=== PATIENT | female | born 1960 | race Two or more races ===

== ENCOUNTER 2020-07-24 16:24 | Inpatient (IN) | payer MEDICAID, OTHER ==
[~2020-07-24] VITALS: Ht 152.4 cm; Wt 48.5 kg
[2020-07-24] MEDS ORDERED: IOHEXOL 300 MG/ML 100ML BOTTLE IJ ONE (17:21)
[2020-07-24] MEDS ORDERED: ONDANSETRON HCL 4 MG/2 ML VIAL IV ONE (17:45)
[2020-07-24] MEDS ORDERED: MORPHINE SULF INJ 2 MG/ML SYRINGE 1ML IV ONE ×2 (17:45→20:00)
[2020-07-24 18:25] LABS: Basophils # (auto) 0.1 10 ^3/uL (0-0.2); Basophils % (auto) 1.4 % (0.0-2.0); Eosinophils # (auto) 0.3 10 ^3/uL (0-0.8); Eosinophils % (auto) 6.4 % (0.0-7.0); Hematocrit 31.2 % (36.0-46.0); Hemoglobin 10.5 g/dL (12.2-16.2); Lymphocytes # (auto) 1.4 10 ^3/uL (0.4-5.4); Lymphocytes % (auto) 29.2 % (10.0-50.0); Mean Corpuscular Hemoglobin 28.4 pg (28.0-32.0); Mean Corpuscular Hgb Conc. 33.6 g/dL (32.0-36.0); Mean Corpuscular Volume 84.3 fL (80.0-100.0); Monocytes # (auto) 0.6 10 ^3/uL (0-1.3); Monocytes % (auto) 12.2 % (0.0-12.0); Neutrophils # (auto) 2.5 10 ^3/uL (1.6-8.6); Neutrophils % (auto) 50.8 % (37.0-80.0); Nucleated Red Blood Cells % 0.1 %; Platelet Count (auto) 290 10^3/uL (140-450); White Blood Cell 4.9 10^3/uL (4.4-10.8)
[2020-07-24 18:36] LABS: Chloride 112 mmol/L (98-107); Potassium 3.7 mmol/L (3.5-5.1); Sodium 144 mmol/L (136-145)
[2020-07-24 18:45] LABS: Partial Thromboplastin Time 27.7 sec (23.0-31.2)
[2020-07-24 18:48] LABS: Alanine Aminotransferase 15 U/L (13-56); Albumin 3.7 g/dL (3.4-5.0); Alkaline Phosphatase 78 U/L (45-117); Amylase 85 U/L (25-115); Anion Gap 9 (5-15); Aspartate Aminotransferase 14 U/L (15-37); BUN/Creatinine Ratio 7.6; Bilirubin, Total 0.3 mg/dL (0.2-1.0); Blood Urea Nitrogen 6 mg/dL (7-18); Calcium 8.6 mg/dL (8.5-10.1); Carbon Dioxide 23 mmol/L (21-32); GFR African American 95 mL/min; GFR Non-African American 79 mL/min; Glucose 98 mg/dL (74-106); Lipase 132 U/L (73-393); Magnesium 2.2 mg/dL (1.6-2.6); Total Protein 6.5 g/dL (6.4-8.2)
[2020-07-24] MEDS ORDERED: NITROGLYCERIN 0.4 MG SL TAB SL ONE (21:15)
[2020-07-24 21:29] LABS: Urine Bacteria NONE SEEN /hpf (None Seen); Urine Blood Negative /uL (Negative); Urine Specific Gravity 1.039 (1.001-1.035); Urine WBC 2 /hpf (0 - 5)
[2020-07-24] MEDS ORDERED: NITROGLYCERIN 0.4 MG SL TAB SL PRN (21:30)
[2020-07-24] MEDS: ATORVASTATIN 20 MG TAB PO SCH (22:40)
[2020-07-24 23:22] VITALS: BP 123/64
[2020-07-24] MEDS: MORPHINE SULF INJ 2 MG/ML SYRINGE 1ML IV PRN (23:54)
[2020-07-25] MEDS: MORPHINE SULF INJ 2 MG/ML SYRINGE 1ML IV PRN ×5 (04:06→23:06)
[2020-07-25 05:00] VITALS: BP 103/49
[2020-07-25 06:16] LABS: Basophils # (auto) 0.1 10 ^3/uL (0-0.2); Basophils % (auto) 1.2 % (0.0-2.0); Eosinophils # (auto) 0.3 10 ^3/uL (0-0.8); Eosinophils % (auto) 6.6 % (0.0-7.0); Hematocrit 30.3 % (36.0-46.0); Hemoglobin 10.2 g/dL (12.2-16.2); Lymphocytes # (auto) 1.6 10 ^3/uL (0.4-5.4); Lymphocytes % (auto) 33.4 % (10.0-50.0); Mean Corpuscular Hemoglobin 28.4 pg (28.0-32.0); Mean Corpuscular Hgb Conc. 33.6 g/dL (32.0-36.0); Mean Corpuscular Volume 84.7 fL (80.0-100.0); Monocytes # (auto) 0.5 10 ^3/uL (0-1.3); Monocytes % (auto) 11.3 % (0.0-12.0); Neutrophils # (auto) 2.3 10 ^3/uL (1.6-8.6); Neutrophils % (auto) 47.5 % (37.0-80.0); Nucleated Red Blood Cells % 0.1 %; Platelet Count (auto) 257 10^3/uL (140-450); Red Blood Cells 3.57 10^6/uL (4.0-5.20); Red Cell Distribution Width 15.9 % (11.8-14.3); White Blood Cell 4.8 10^3/uL (4.4-10.8)
[2020-07-25 06:31] LABS: Albumin 3.2 g/dL (3.4-5.0); Anion Gap 5 (5-15); Blood Urea Nitrogen 9 mg/dL (7-18); Calcium 8.2 mg/dL (8.5-10.1); Carbon Dioxide 28 mmol/L (21-32); Chloride 110 mmol/L (98-107); Glucose 92 mg/dL (74-106); Potassium 3.7 mmol/L (3.5-5.1); Sodium 143 mmol/L (136-145)
[2020-07-25 06:37] LABS: Alanine Aminotransferase 13 U/L (13-56); Alkaline Phosphatase 64 U/L (45-117); Aspartate Aminotransferase 12 U/L (15-37); BUN/Creatinine Ratio 11.3; Bilirubin, Total 0.2 mg/dL (0.2-1.0); Cholesterol 124 mg/dL (< 200); GFR African American 94 mL/min; GFR Non-African American 78 mL/min; HDL Cholesterol 45 mg/dL (40-59); LDL Cholesterol 61 mg/dL (< 100); Total Protein 5.8 g/dL (6.4-8.2); Triglycerides 144 mg/dL (< 150)
[2020-07-25] MEDS: ONDANSETRON HCL 4 MG/2 ML VIAL IV PRN ×4 (08:37→23:06)
[2020-07-25] MEDS ORDERED: RANO500T2 PO (08:46)
[2020-07-25] MEDS ORDERED: ATOR80TA PO (08:46)
[2020-07-25] MEDS ORDERED: MONT5CHW23 PO (08:46)
[2020-07-25] MEDS ORDERED: APIX2.5T PO (08:46)
[2020-07-25] MEDS ORDERED: CLOP75TA28 PO (08:46)
[2020-07-25 09:00] VITALS: BP 101/41
[2020-07-25] MEDS ORDERED: ASPirin 81 mg TAB PO SCH (10:00)
[2020-07-25] MEDS ORDERED: APIX5TAB PO (11:11)
[2020-07-25] MEDS ORDERED: HYDR12.56 PO (11:11)
[2020-07-25] MEDS ORDERED: BUSP10TA31 PO (11:11)
[2020-07-25 13:00] VITALS: BP 105/54
[2020-07-25] MEDS: PANTOPRAZOLE 40 MG/10 ML VIAL INJ IV SCH (13:30)
[2020-07-25 17:00] VITALS: BP 113/50
[2020-07-25] MEDS: ATORVASTATIN 20 MG TAB PO SCH (21:40)
[2020-07-25] MEDS: DOCUSATE SOD 100 MG CAP PO SCH (21:40)
[2020-07-25] MEDS: busPIRone HCL 10 MG TAB PO SCH (21:40)
[2020-07-25] MEDS: RANOLAZINE ER 500 MG TAB PO SCH (21:41)
[2020-07-25 22:56] VITALS: BP 124/52
[2020-07-26] MEDS: ONDANSETRON HCL 4 MG/2 ML VIAL IV PRN ×4 (04:18→22:21)
[2020-07-26] MEDS: MORPHINE SULF INJ 2 MG/ML SYRINGE 1ML IV PRN ×4 (04:18→20:55)
[2020-07-26 05:00] VITALS: BP 105/52
[2020-07-26 08:55] VITALS: BP 98/53
[2020-07-26] MEDS: PANTOPRAZOLE 40 MG/10 ML VIAL INJ IV SCH (09:33)
[2020-07-26] MEDS: busPIRone HCL 10 MG TAB PO SCH ×2 (09:33→21:56)
[2020-07-26] MEDS: MONTELUKAST SODIUM 10 MG TAB PO SCH (09:34)
[2020-07-26] MEDS: DOCUSATE SOD 100 MG CAP PO SCH ×2 (09:34→21:58)
[2020-07-26] MEDS: RANOLAZINE ER 500 MG TAB PO SCH ×2 (09:34→21:56)
[2020-07-26] MEDS ORDERED: GOLYTELY 4L KIT PO ONE (10:45)
[2020-07-26 11:22] LABS: Basophils # (auto) 0 10 ^3/uL (0-0.2); Eosinophils # (auto) 0.2 10 ^3/uL (0-0.8); Eosinophils % (auto) 5.3 % (0.0-7.0); Hematocrit 32.3 % (36.0-46.0); Hemoglobin 10.7 g/dL (12.2-16.2); Lymphocytes # (auto) 1.2 10 ^3/uL (0.4-5.4); Lymphocytes % (auto) 28.9 % (10.0-50.0); Mean Corpuscular Hgb Conc. 33.2 g/dL (32.0-36.0); Mean Corpuscular Volume 84.4 fL (80.0-100.0); Monocytes # (auto) 0.4 10 ^3/uL (0-1.3); Monocytes % (auto) 9.3 % (0.0-12.0); Neutrophils # (auto) 2.3 10 ^3/uL (1.6-8.6); Neutrophils % (auto) 55.5 % (37.0-80.0); Nucleated Red Blood Cells % 0.2 %; Platelet Count (auto) 272 10^3/uL (140-450); Red Blood Cells 3.83 10^6/uL (4.0-5.20); Red Cell Distribution Width 15.7 % (11.8-14.3); White Blood Cell 4.2 10^3/uL (4.4-10.8)
[2020-07-26] MEDS ORDERED: EZET10TA22 PO (11:29)
[2020-07-26] MEDS ORDERED: PANT1INJ3 PO (11:30)
[2020-07-26 11:42] LABS: BUN/Creatinine Ratio 9.2; Calcium 9.1 mg/dL (8.5-10.1); Potassium 3.9 mmol/L (3.5-5.1)
[2020-07-26 13:00] VITALS: BP 106/55
[2020-07-26 16:35] LABS: INR 1.08 (0.9-1.15); Partial Thromboplastin Time 27.5 sec (23.0-31.2)
[2020-07-26 16:54] VITALS: BP 124/63
[2020-07-26] MEDS: ATORVASTATIN 20 MG TAB PO SCH (21:56)
[2020-07-26 22:00] VITALS: BP 150/74
[2020-07-27] MEDS: MORPHINE SULF INJ 2 MG/ML SYRINGE 1ML IV PRN ×3 (01:00→10:21)
[2020-07-27 05:00] VITALS: BP_SYST 112; BP_SYST 134; BP_DIAS 61; BP_DIAS 66
[2020-07-27] MEDS: ONDANSETRON HCL 4 MG/2 ML VIAL IV PRN ×2 (05:22→10:21)
[2020-07-27 07:19] LABS: Basophils # (auto) 0.1 10 ^3/uL (0-0.2); Eosinophils # (auto) 0.3 10 ^3/uL (0-0.8); Eosinophils % (auto) 5.3 % (0.0-7.0); Hematocrit 31.5 % (36.0-46.0); Hemoglobin 10.4 g/dL (12.2-16.2); Lymphocytes # (auto) 1.5 10 ^3/uL (0.4-5.4); Mean Corpuscular Hemoglobin 27.7 pg (28.0-32.0); Mean Corpuscular Hgb Conc. 32.9 g/dL (32.0-36.0); Mean Corpuscular Volume 84.3 fL (80.0-100.0); Monocytes # (auto) 0.6 10 ^3/uL (0-1.3); Monocytes % (auto) 11.7 % (0.0-12.0); Neutrophils # (auto) 2.6 10 ^3/uL (1.6-8.6); Platelet Count (auto) 272 10^3/uL (140-450); Red Blood Cells 3.73 10^6/uL (4.0-5.20); Red Cell Distribution Width 15.8 % (11.8-14.3); White Blood Cell 4.9 10^3/uL (4.4-10.8)
[2020-07-27 08:02] LABS: BUN/Creatinine Ratio 5.4; Calcium 8.8 mg/dL (8.5-10.1); Potassium 3.7 mmol/L (3.5-5.1)
[2020-07-27 08:30] VITALS: BP 137/61
[2020-07-27] MEDS: DOCUSATE SOD 100 MG CAP PO SCH (09:54)
[2020-07-27] MEDS: busPIRone HCL 10 MG TAB PO SCH (09:54)
[2020-07-27] MEDS: RANOLAZINE ER 500 MG TAB PO SCH (09:54)
[2020-07-27] MEDS: MONTELUKAST SODIUM 10 MG TAB PO SCH (09:54)
[2020-07-27] MEDS: PANTOPRAZOLE 40 MG/10 ML VIAL INJ IV SCH (10:20)
[2020-07-27 12:30] VITALS: BP 140/64
[2020-07-27] MEDS ORDERED: fentaNYL CITRATE 100 MCG/2 ML VL ONE ×2 (12:59→13:34)
[2020-07-27] MEDS ORDERED: MIDAZOLAM HCL 1MG/1ML-2 ML VIAL ONE (12:59)
[2020-07-27] MEDS ORDERED: PROPOFOL 10 MG/ML 20 ML IV ONE (13:00)
[2020-07-27] MEDS ORDERED: LIDOCAINE 2% (LOCAL ANESTH.) PF 5ml SDV ONE (13:00)
[2020-07-27] MEDS ORDERED: ONDANSETRON HCL 4 MG/2 ML VIAL IV PRN (14:00)
[2020-07-27 15:30] VITALS: BP 123/60
[2020-07-27 16:03] VITALS: BP 123/60
== END 2020-07-27 19:00 | disposition home or self-care (01) | DRG 253 ==
LOC: ER 16:24 → TELE 21:33 → TELE-WESTW 23:00
PROVIDERS: ADMIT Hospitalist; ATTEND Hospitalist
PROC: 0DJ08ZZ Inspection of Upper Intestinal Tract, Via Natural or Artificial Opening Endoscopic (ICD-10-PCS; principal; 2020-07-24)
PROC: 0DJD8ZZ Inspection of Lower Intestinal Tract, Via Natural or Artificial Opening Endoscopic (ICD-10-PCS; 2020-07-24)
DX: K62.5 Hemorrhage of anus and rectum (principal); I11.0 Hypertensive heart disease with heart failure; I82.401 Acute embolism and thrombosis of unspecified deep veins of right lower extremity; I50.9 Heart failure, unspecified; I25.10 Atherosclerotic heart disease of native coronary artery without angina pectoris; E78.5 Hyperlipidemia, unspecified; D64.9 Anemia, unspecified; K64.8 Other hemorrhoids; J45.909 Unspecified asthma, uncomplicated; G89.29 Other chronic pain; M19.90 Unspecified osteoarthritis, unspecified site; Z79.01 Long term (current) use of anticoagulants; Z86.718 Personal history of other venous thrombosis and embolism; Z95.5 Presence of coronary angioplasty implant and graft; K21.9 Gastro-esophageal reflux disease without esophagitis; F32.9 Major depressive disorder, single episode, unspecified
CPT/HCPCS: 36415; 71045; 74177; 80048; 80053; 80061; 81001; 82150; 83605; 83690; 83735; 84484; 85025; 85610; 85730; 86850; 86900; 86901; 87426; 93005; 93306; 96374; 96375; 96376; C9113; G0378; J2001; J2250; J2405; J2704

== ENCOUNTER 2021-05-25 11:32 | Inpatient (IN) | payer MEDICAID ==
[~2021-05-25] VITALS: Ht 152.4 cm; Wt 49.4 kg
[~2021-05-25 11:32] MED LIST: APIX5TAB PO; ATOR80TA PO; BUSP10TA31 PO; EZET10TA22 PO; HYDR12.56 PO; MONT5CHW23 PO; PANT1INJ3 PO; RANO500T2 PO
[2021-05-25 12:49] LABS: Basophils # (auto) 0.1 10 ^3/uL (0-0.2); Basophils % (auto) 0.8 % (0.0-2.0); Eosinophils # (auto) 0.2 10 ^3/uL (0-0.8); Eosinophils % (auto) 2.9 % (0.0-7.0); Hematocrit 28.5 % (36.0-46.0); Hemoglobin 9.3 g/dL (12.2-16.2); Lymphocytes # (auto) 1.4 10 ^3/uL (0.4-5.4); Mean Corpuscular Hemoglobin 28.3 pg (28.0-32.0); Mean Corpuscular Hgb Conc. 32.6 g/dL (32.0-36.0); Monocytes # (auto) 0.6 10 ^3/uL (0-1.3); Monocytes % (auto) 9.1 % (0.0-12.0); Neutrophils # (auto) 4.2 10 ^3/uL (1.6-8.6); Neutrophils % (auto) 65.2 % (37.0-80.0); Red Blood Cells 3.28 10^6/uL (4.0-5.20); Red Cell Distribution Width 17.9 % (11.8-14.3); White Blood Cell 6.4 10^3/uL (4.4-10.8)
[2021-05-25 13:09] LABS: Albumin 3.5 g/dL (3.4-5.0); Calcium 8.8 mg/dL (8.5-10.1); Potassium 4.1 mmol/L (3.5-5.1)
[2021-05-25 13:14] LABS: BUN/Creatinine Ratio 13.2; Bilirubin, Total 0.4 mg/dL (0.2-1.0); Total Protein 6.6 g/dL (6.4-8.2)
[2021-05-25] MEDS ORDERED: ONDANSETRON HCL 4 MG/2 ML VIAL ONE (13:24)
[2021-05-25] MEDS ORDERED: ONDANSETRON HCL 4 MG/2 ML VIAL IV ONE (13:30)
[2021-05-25] MEDS ORDERED: IOHEXOL 350 MG/ML 100ML IJ ONE (13:34)
[2021-05-25] MEDS ORDERED: MORPHINE SULFATE INJECTION 2 MG/ML SYRG IV ONE (15:00)
[2021-05-25] MEDS ORDERED: NITROGLYCERIN 0.4 MG SL TAB SL PRN (17:15)
[2021-05-25] MEDS ORDERED: ACETAMINOPHEN 325 MG TAB PO PRN (17:15)
[2021-05-25] MEDS ORDERED: MORPHINE SULFATE INJECTION 2 MG/ML SYRG IV PRN (17:15)
[2021-05-25] MEDS: MORPHINE SULFATE 4 MG/ML SYR/VIAL IV PRN (21:51)
[2021-05-25] MEDS: MONTELUKAST SODIUM 10 MG TAB PO SCH (21:58)
[2021-05-25] MEDS: busPIRone HCL 10 MG TAB PO SCH (21:58)
[2021-05-25] MEDS: ATORVASTATIN 20 MG TAB PO SCH (21:58)
[2021-05-25] MEDS: APIXABAN 5 MG TAB PO SCH (21:59)
[2021-05-25] MEDS: RANOLAZINE ER 500 MG TAB PO SCH (22:00)
[2021-05-25 22:37] VITALS: BP 104/52
[2021-05-26] MEDS: HYDROcodone-ACET 5/325MG TAB PO PRN (01:40)
[2021-05-26] MEDS: MORPHINE SULFATE 4 MG/ML SYR/VIAL IV PRN ×3 (03:26→22:11)
[2021-05-26 05:15] VITALS: BP 93/43
[2021-05-26] MEDS: busPIRone HCL 10 MG TAB PO SCH ×3 (06:35→22:09)
[2021-05-26] MEDS ORDERED: EZETIMIBE PO SCH (07:00)
[2021-05-26 09:00] VITALS: BP 93/41
[2021-05-26] MEDS: HCTZ 25 MG TAB PO SCH (09:06)
[2021-05-26] MEDS: APIXABAN 5 MG TAB PO SCH ×2 (09:06→18:35)
[2021-05-26] MEDS: ONDANSETRON HCL 4 MG/2 ML VIAL IV PRN ×2 (09:07→18:29)
[2021-05-26] MEDS: RANOLAZINE ER 500 MG TAB PO SCH ×2 (10:17→22:09)
[2021-05-26] MEDS: DOXYCYCLINE 100MG/250ML 250 ML IV SCH ×2 (11:13→22:09)
[2021-05-26 13:00] VITALS: BP 101/54
[2021-05-26 17:00] VITALS: BP 92/50
[2021-05-26 21:42] VITALS: BP 112/67
[2021-05-26] MEDS: ATORVASTATIN 20 MG TAB PO SCH (22:09)
[2021-05-26] MEDS: MONTELUKAST SODIUM 10 MG TAB PO SCH (22:10)
[2021-05-27] MEDS: HYDROcodone-ACET 5/325MG TAB PO PRN (03:02)
[2021-05-27 05:00] VITALS: BP 89/37
[2021-05-27] MEDS: ONDANSETRON HCL 4 MG/2 ML VIAL IV PRN (05:39)
[2021-05-27] MEDS: busPIRone HCL 10 MG TAB PO SCH ×3 (05:39→21:48)
[2021-05-27 09:00] VITALS: BP 105/53
[2021-05-27] MEDS: APIXABAN 5 MG TAB PO SCH ×2 (09:00→18:39)
[2021-05-27 09:40] VITALS: BP 105/53
[2021-05-27] MEDS: DOXYCYCLINE 100MG/250ML 250 ML IV SCH ×2 (10:00→21:46)
[2021-05-27] MEDS: HCTZ 25 MG TAB PO SCH (10:00)
[2021-05-27] MEDS: RANOLAZINE ER 500 MG TAB PO SCH ×2 (10:00→21:49)
[2021-05-27] MEDS: DOCUSATE SOD 100 MG CAP PO SCH ×2 (10:45→21:47)
[2021-05-27 13:00] VITALS: BP 113/57
[2021-05-27] MEDS: MORPHINE SULFATE 4 MG/ML SYR/VIAL IV PRN (16:30)
[2021-05-27 16:57] VITALS: BP 104/60
[2021-05-27] MEDS: ATORVASTATIN 20 MG TAB PO SCH (21:47)
[2021-05-27] MEDS: MONTELUKAST SODIUM 10 MG TAB PO SCH (21:49)
[2021-05-27] MEDS: SENNA 8.6 MG TAB PO SCH (21:50)
[2021-05-27 22:29] VITALS: BP 106/56
[2021-05-28] MEDS: HYDROcodone-ACET 5/325MG TAB PO PRN ×4 (03:26→20:24)
[2021-05-28 05:09] VITALS: BP 115/59
[2021-05-28 05:22] LABS: Basophils # (auto) 0 10 ^3/uL (0-0.2); Basophils % (auto) 0.8 % (0.0-2.0); Eosinophils # (auto) 0.3 10 ^3/uL (0-0.8); Eosinophils % (auto) 5.9 % (0.0-7.0); Hematocrit 28.1 % (36.0-46.0); Hemoglobin 9.6 g/dL (12.2-16.2); Lymphocytes # (auto) 1.3 10 ^3/uL (0.4-5.4); Lymphocytes % (auto) 26.7 % (10.0-50.0); Mean Corpuscular Hemoglobin 29.4 pg (28.0-32.0); Mean Corpuscular Volume 86.4 fL (80.0-100.0); Monocytes # (auto) 0.5 10 ^3/uL (0-1.3); Monocytes % (auto) 10.3 % (0.0-12.0); Neutrophils # (auto) 2.8 10 ^3/uL (1.6-8.6); Neutrophils % (auto) 56.3 % (37.0-80.0); Nucleated Red Blood Cells % 0.1 %; Red Blood Cells 3.26 10^6/uL (4.0-5.20); Red Cell Distribution Width 17.1 % (11.8-14.3)
[2021-05-28] MEDS: busPIRone HCL 10 MG TAB PO SCH ×3 (05:34→21:03)
[2021-05-28 05:43] LABS: Potassium 4.2 mmol/L (3.5-5.1)
[2021-05-28 05:50] LABS: BUN/Creatinine Ratio 14.9; Calcium 9.1 mg/dL (8.5-10.1)
[2021-05-28 08:00] VITALS: BP 109/56
[2021-05-28] MEDS: APIXABAN 5 MG TAB PO SCH ×2 (09:00→20:23)
[2021-05-28] MEDS: DOCUSATE SOD 100 MG CAP PO SCH ×2 (10:00→21:02)
[2021-05-28] MEDS: HCTZ 25 MG TAB PO SCH (10:00)
[2021-05-28] MEDS: RANOLAZINE ER 500 MG TAB PO SCH ×2 (10:00→21:02)
[2021-05-28] MEDS: DOXYCYCLINE 100MG/250ML 250 ML IV SCH ×2 (10:00→21:13)
[2021-05-28] MEDS ORDERED: ADENOSINE 37 MG in GIVE UN-DILUTED 0 ML IV STA (11:56)
[2021-05-28 12:00] VITALS: BP 114/53
[2021-05-28 16:00] VITALS: BP 101/59
[2021-05-28] MEDS: ATORVASTATIN 20 MG TAB PO SCH (21:02)
[2021-05-28] MEDS: MONTELUKAST SODIUM 10 MG TAB PO SCH (21:03)
[2021-05-28] MEDS: SENNA 8.6 MG TAB PO SCH (21:03)
[2021-05-28 21:46] VITALS: BP 129/69
[2021-05-29] MEDS: HYDROcodone-ACET 5/325MG TAB PO PRN ×3 (01:02→10:56)
[2021-05-29 01:50] VITALS: BP 123/62
[2021-05-29 05:00] VITALS: BP 101/58
[2021-05-29] MEDS: busPIRone HCL 10 MG TAB PO SCH ×2 (06:25→13:41)
[2021-05-29] MEDS: APIXABAN 5 MG TAB PO SCH (08:47)
[2021-05-29] MEDS: DOCUSATE SOD 100 MG CAP PO SCH (08:47)
[2021-05-29] MEDS: RANOLAZINE ER 500 MG TAB PO SCH (08:47)
[2021-05-29] MEDS: DOXYCYCLINE 100MG/250ML 250 ML IV SCH (08:48)
[2021-05-29] MEDS: ONDANSETRON HCL 4 MG/2 ML VIAL IV PRN (08:48)
[2021-05-29] MEDS: HCTZ 25 MG TAB PO SCH (08:49)
[2021-05-29 09:00] VITALS: BP 95/53
[2021-05-29] MEDS ORDERED: DOXY-286 PO (10:44)
[2021-05-29 12:34] VITALS: BP 106/55
[2021-05-29] MEDS ORDERED: ISO60SRT PO (13:23)
[2021-05-29] MEDS ORDERED: ISOSORBIDE MONONITRATE ER 60 MG TAB PO SCH (13:30)
== END 2021-05-29 15:16 | disposition home or self-care (01) | DRG 203 ==
LOC: ER 11:32 → TELE 17:10 → TELE-WESTW 19:04
PROVIDERS: ADMIT Internal Medicine; ATTEND Internal Medicine
DX: M94.0 Chondrocostal junction syndrome [Tietze] (principal); E78.5 Hyperlipidemia, unspecified; I25.10 Atherosclerotic heart disease of native coronary artery without angina pectoris; F12.90 Cannabis use, unspecified, uncomplicated; F41.9 Anxiety disorder, unspecified; K21.9 Gastro-esophageal reflux disease without esophagitis; J43.9 Emphysema, unspecified; Z20.822 Contact with and (suspected) exposure to COVID-19; I10 Essential (primary) hypertension; G89.29 Other chronic pain; Z79.01 Long term (current) use of anticoagulants; Z82.49 Family history of ischemic heart disease and other diseases of the circulatory system; Z86.711 Personal history of pulmonary embolism; Z86.718 Personal history of other venous thrombosis and embolism; Z87.891 Personal history of nicotine dependence; Z95.5 Presence of coronary angioplasty implant and graft
CPT/HCPCS: 36415; 36600; 71046; 71275; 78452; 80048; 80053; 82805; 83880; 84484; 85025; 85379; 87426; 93005; 93017; 93306; 96374; 96375; 96376; 97163; G0378; J0153; J2405; J3490

== ENCOUNTER 2022-03-01 14:07 | Inpatient (IN) | payer MEDICAID ==
[~2022-03-01] VITALS: Ht 152.4 cm; Wt 52.0 kg
[~2022-03-01 14:07] MED LIST changes: +DOXY-286 PO; +ISO60SRT PO
[2022-03-01 14:53] LABS: Basophils # (auto) 0.1 10 ^3/uL (0-0.2); Basophils % (auto) 1.2 % (0.0-2.0); Eosinophils # (auto) 0.2 10 ^3/uL (0-0.8); Eosinophils % (auto) 5.1 % (0.0-7.0); Hematocrit 34.5 % (36.0-46.0); Hemoglobin 11.8 g/dL (12.2-16.2); Lymphocytes # (auto) 1.4 10 ^3/uL (0.4-5.4); Lymphocytes % (auto) 30.9 % (10.0-50.0); Mean Corpuscular Hemoglobin 27.5 pg (28.0-32.0); Mean Corpuscular Hgb Conc. 34.2 g/dL (32.0-36.0); Mean Corpuscular Volume 80.5 fL (80.0-100.0); Monocytes # (auto) 0.4 10 ^3/uL (0-1.3); Monocytes % (auto) 8.5 % (0.0-12.0); Neutrophils # (auto) 2.5 10 ^3/uL (1.6-8.6); Neutrophils % (auto) 54.3 % (37.0-80.0); Nucleated Red Blood Cells % 0.1 %; Red Blood Cells 4.28 10^6/uL (4.0-5.20); Red Cell Distribution Width 20.7 % (11.8-14.3); White Blood Cell 4.7 10^3/uL (4.4-10.8)
[2022-03-01 15:09] LABS: INR 1.01 (0.9-1.15); Partial Thromboplastin Time 29.4 sec (24.6-33.4)
[2022-03-01 15:16] LABS: Albumin 4.2 g/dL (3.4-5.0); Calcium 9.5 mg/dL (8.5-10.1); Magnesium 2.2 mg/dL (1.6-2.6); Potassium 4.2 mmol/L (3.5-5.1)
[2022-03-01 15:21] LABS: BUN/Creatinine Ratio 17.1; Bilirubin, Total 0.4 mg/dL (0.2-1.0); Total Protein 7.2 g/dL (6.4-8.2)
[2022-03-01 16:07] LABS: Urine Bacteria NONE SEEN /hpf (None Seen); Urine Blood Negative /uL (Negative); Urine Specific Gravity 1.015 (1.001-1.035); Urine WBC 1 /hpf (0 - 5)
[2022-03-01] MEDS ORDERED: ASPirin 325 MG TAB PO ONE (16:15)
[2022-03-01] MEDS ORDERED: NITROGLYCERIN 0.4 MG SL TAB SL ONE (16:15)
[2022-03-01] MEDS ORDERED: MORPHINE SULFATE INJ 2 MG/ml SYRG IV PRN (17:00)
[2022-03-01] MEDS ORDERED: ACETAMINOPHEN 325 MG TAB PO PRN (17:00)
[2022-03-01] MEDS ORDERED: NITROGLYCERIN 0.4 MG SL TAB SL PRN (17:00)
[2022-03-01 17:44] LABS: Cholesterol 154 mg/dL (< 200); HDL Cholesterol 71 mg/dL (40-59); LDL Cholesterol 80 mg/dL (< 100); Triglycerides 107 mg/dL (< 150)
[2022-03-02] MEDS: SODIUM CHLORIDE 0.9% 1,000 ML IV SCH ×2 (00:25→11:15)
[2022-03-02 03:37] LABS: Basophils # (auto) 0.1 10 ^3/uL (0-0.2); Basophils % (auto) 1.2 % (0.0-2.0); Eosinophils # (auto) 0.3 10 ^3/uL (0-0.8); Eosinophils % (auto) 6.7 % (0.0-7.0); Hematocrit 30.9 % (36.0-46.0); Hemoglobin 10.2 g/dL (12.2-16.2); Lymphocytes # (auto) 1.8 10 ^3/uL (0.4-5.4); Lymphocytes % (auto) 34.9 % (10.0-50.0); Mean Corpuscular Hemoglobin 26.5 pg (28.0-32.0); Mean Corpuscular Hgb Conc. 33.1 g/dL (32.0-36.0); Mean Corpuscular Volume 80.1 fL (80.0-100.0); Monocytes # (auto) 0.6 10 ^3/uL (0-1.3); Monocytes % (auto) 11.7 % (0.0-12.0); Neutrophils # (auto) 2.4 10 ^3/uL (1.6-8.6); Neutrophils % (auto) 45.5 % (37.0-80.0); Nucleated Red Blood Cells % 0.1 %; Red Blood Cells 3.86 10^6/uL (4.0-5.20); White Blood Cell 5.2 10^3/uL (4.4-10.8)
[2022-03-02 03:39] LABS: Red Cell Distribution Width 20.4 % (11.8-14.3)
[2022-03-02 03:51] LABS: Albumin 3.7 g/dL (3.4-5.0); BUN/Creatinine Ratio 20.3; Calcium 9.2 mg/dL (8.5-10.1); Potassium 4.4 mmol/L (3.5-5.1)
[2022-03-02 03:54] LABS: Bilirubin, Total 0.3 mg/dL (0.2-1.0); Total Protein 6.6 g/dL (6.4-8.2)
[2022-03-02] MEDS ORDERED: ASPirin 81 mg TAB PO SCH (10:00)
[2022-03-02] MEDS ORDERED: ENOXAPARIN SOD 40 MG/0.4 ML SYRINGE SC SCH (10:00)
[2022-03-02] MEDS ORDERED: PROMETHAZINE HCL 25 MG/ML 1ML IV PRN (15:45)
[2022-03-02] MEDS ORDERED: RANO500T2 PO (18:59)
[2022-03-02] MEDS ORDERED: METO25TA93 PO (18:59)
[2022-03-02] MEDS ORDERED: CLOP75TA70 PO (18:59)
[2022-03-02] MEDS ORDERED: APIX5TAB PO (18:59)
[2022-03-02] MEDS ORDERED: CLOPIDOGREL BISULFATE 75 MG TAB PO SCH (19:00)
[2022-03-02 21:14] VITALS: BP 152/88
[2022-03-02] MEDS ORDERED: APIXABAN 2.5 MG TAB PO SCH (22:00)
[2022-03-02] MEDS ORDERED: ATORVASTATIN 20 MG TAB PO SCH ×2 (22:00)
[2022-03-02] MEDS ORDERED: PANTOPRAZOLE 40 MG TAB PO SCH (22:00)
[2022-03-02] MEDS ORDERED: RANOLAZINE ER 500 MG TAB PO SCH (22:00)
[2022-03-03] MEDS ORDERED: METOPROLOL SUCCINATE XL 50 MG TAB PO SCH (10:00)
== END 2022-03-02 21:15 | disposition home or self-care (01) | DRG 243 ==
LOC: ER 14:07 → TELE 16:53
PROVIDERS: ADMIT Nurse Practitioner Family; ATTEND Hospitalist
DX: K21.9 Gastro-esophageal reflux disease without esophagitis (principal); E78.5 Hyperlipidemia, unspecified; I10 Essential (primary) hypertension; I25.10 Atherosclerotic heart disease of native coronary artery without angina pectoris; J44.9 Chronic obstructive pulmonary disease, unspecified; F41.9 Anxiety disorder, unspecified; R73.9 Hyperglycemia, unspecified; Z20.822 Contact with and (suspected) exposure to COVID-19; Z79.01 Long term (current) use of anticoagulants; Z95.5 Presence of coronary angioplasty implant and graft; Z79.899 Other long term (current) drug therapy; Z86.718 Personal history of other venous thrombosis and embolism
CPT/HCPCS: 36415; 71046; 80053; 80061; 81001; 83036; 83735; 84443; 84484; 85025; 85379; 85610; 85730; 87426; 93005; G0378

== ENCOUNTER 2022-06-27 20:23 | Inpatient (IN) | payer MEDICAID ==
[~2022-06-27] VITALS: Ht 152.4 cm; Wt 48.5 kg
[~2022-06-27 20:23] MED LIST changes: +CLOP75TA70 PO; +METO25TA93 PO
[2022-06-27 21:04] LABS: Basophils # (auto) 0.1 10 ^3/uL (0-0.2); Eosinophils # (auto) 0.2 10 ^3/uL (0-0.8); Hemoglobin 11.2 g/dL (12.2-16.2); Monocytes # (auto) 0.6 10 ^3/uL (0-1.3); Neutrophils # (auto) 3.3 10 ^3/uL (1.6-8.6); Nucleated Red Blood Cells % 0.1 %
[2022-06-27 21:06] LABS: Basophils % (auto) 1.2 % (0.0-2.0); Eosinophils % (auto) 3.2 % (0.0-7.0); Lymphocytes # (auto) 1.9 10 ^3/uL (0.4-5.4); Lymphocytes % (auto) 31.3 % (10.0-50.0); Mean Corpuscular Hgb Conc. 32.1 g/dL (32.0-36.0); Mean Corpuscular Volume 80.9 fL (80.0-100.0); Monocytes % (auto) 10.1 % (0.0-12.0); Neutrophils % (auto) 54.2 % (37.0-80.0); Red Blood Cells 4.33 10^6/uL (4.0-5.20); Red Cell Distribution Width 18.2 % (11.8-14.3)
[2022-06-27 21:21] LABS: INR 0.97 (0.9-1.15); Partial Thromboplastin Time 27.1 sec (24.6-33.4)
[2022-06-27 21:23] LABS: Albumin 3.8 g/dL (3.4-5.0); BUN/Creatinine Ratio 19.1 (10.0-20.0); Calcium 9.4 mg/dL (8.5-10.1); Magnesium 2.1 mg/dL (1.6-2.6); Potassium 3.7 mmol/L (3.5-5.1)
[2022-06-27 21:26] LABS: Bilirubin, Total 0.2 mg/dL (0.2-1.0); Total Protein 7.5 g/dL (6.4-8.2)
[2022-06-28] MEDS ORDERED: ACETAMINOPHEN 325 MG TAB PO PRN (02:45)
[2022-06-28] MEDS ORDERED: NITROGLYCERIN 0.4 MG SL TAB SL PRN (02:45)
[2022-06-28] MEDS: ONDANSETRON HCL 4 MG/2 ML VIAL IV PRN ×3 (03:59→18:28)
[2022-06-28] MEDS: MORPHINE SULFATE INJ 2 MG/ml SYRG IV PRN ×3 (03:59→10:52)
[2022-06-28] MEDS ORDERED: METOPROLOL TARTRATE 25 MG TAB PO SCH ×2 (10:00→22:00)
[2022-06-28] MEDS: PANTOPRAZOLE 40 MG TAB PO SCH (10:15)
[2022-06-28] MEDS: SERTRALINE HCL 50 MG TAB PO SCH (10:15)
[2022-06-28] MEDS: APIXABAN 5 MG TAB PO SCH ×2 (10:15→23:43)
[2022-06-28] MEDS: CLOPIDOGREL BISULFATE 75 MG TAB PO SCH (10:15)
[2022-06-28] MEDS: ASPirin 81 mg TAB PO SCH (10:15)
[2022-06-28] MEDS ORDERED: SODIUM CHLORIDE 0.9% 1,000 ML IV ONE (14:30)
[2022-06-28] MEDS ORDERED: HYDROcodone-ACET 5/325MG TAB PO PRN (14:30)
[2022-06-28] MEDS: ATORVASTATIN 20 MG TAB PO SCH (23:43)
[2022-06-29 06:30] LABS: Basophils # (auto) 0 10 ^3/uL (0-0.2); Basophils % (auto) 0.7 % (0.0-2.0); Eosinophils # (auto) 0.4 10 ^3/uL (0-0.8); Eosinophils % (auto) 7.5 % (0.0-7.0); Hemoglobin 11.6 g/dL (12.2-16.2); Lymphocytes # (auto) 1.2 10 ^3/uL (0.4-5.4); Lymphocytes % (auto) 22.6 % (10.0-50.0); Mean Corpuscular Hemoglobin 27.1 pg (28.0-32.0); Mean Corpuscular Hgb Conc. 34.2 g/dL (32.0-36.0); Mean Corpuscular Volume 79.3 fL (80.0-100.0); Monocytes # (auto) 0.5 10 ^3/uL (0-1.3); Monocytes % (auto) 10.2 % (0.0-12.0); Neutrophils # (auto) 3.1 10 ^3/uL (1.6-8.6); Nucleated Red Blood Cells % 0.1 %; Red Blood Cells 4.28 10^6/uL (4.0-5.20); Red Cell Distribution Width 17.7 % (11.8-14.3); White Blood Cell 5.2 10^3/uL (4.4-10.8)
[2022-06-29 06:36] LABS: BUN/Creatinine Ratio 22.2 (10.0-20.0); Potassium 4.1 mmol/L (3.5-5.1)
[2022-06-29] MEDS ORDERED: ACETAMINOPHEN 500 MG TAB PO PRN (11:45)
[2022-06-29] MEDS ORDERED: MORPHINE SULFATE INJ 2 MG/ml SYRG IV PRN (11:45)
[2022-06-29] MEDS: PANTOPRAZOLE 40 MG TAB PO SCH (12:47)
[2022-06-29] MEDS: CLOPIDOGREL BISULFATE 75 MG TAB PO SCH (12:47)
[2022-06-29] MEDS: ASPirin 81 mg TAB PO SCH (12:47)
[2022-06-29] MEDS: DOCUSATE SOD 100 MG CAP PO SCH ×2 (12:47→22:41)
[2022-06-29] MEDS: SERTRALINE HCL 50 MG TAB PO SCH (12:48)
[2022-06-29] MEDS: APIXABAN 5 MG TAB PO SCH ×2 (12:53→22:00)
[2022-06-29] MEDS: ONDANSETRON HCL 4 MG/2 ML VIAL IV PRN ×2 (12:54→23:47)
[2022-06-29] MEDS ORDERED: IOHEXOL 350 MG/ML 100ML IJ ONE (15:27)
[2022-06-29] MEDS: SUCRALFATE 1 GM/10 ML ORAL SUSP PO SCH ×2 (18:01→22:41)
[2022-06-29] MEDS: HYDROcodone-ACET 5/325MG TAB PO PRN (18:58)
[2022-06-29 22:04] VITALS: BP 122/53
[2022-06-29] MEDS: ATORVASTATIN 20 MG TAB PO SCH (22:42)
[2022-06-30 05:00] VITALS: BP 129/87
[2022-06-30 06:19] LABS: Basophils # (auto) 0.1 10 ^3/uL (0-0.2); Eosinophils # (auto) 0.3 10 ^3/uL (0-0.8); Hematocrit 32.8 % (36.0-46.0); Hemoglobin 10.9 g/dL (12.2-16.2); Lymphocytes # (auto) 1.5 10 ^3/uL (0.4-5.4); Mean Corpuscular Hemoglobin 26.7 pg (28.0-32.0); Mean Corpuscular Hgb Conc. 33.2 g/dL (32.0-36.0); Mean Corpuscular Volume 80.5 fL (80.0-100.0); Neutrophils # (auto) 2.4 10 ^3/uL (1.6-8.6); Nucleated Red Blood Cells % 0.1 %; Red Blood Cells 4.07 10^6/uL (4.0-5.20); Red Cell Distribution Width 18.1 % (11.8-14.3)
[2022-06-30] MEDS: SUCRALFATE 1 GM/10 ML ORAL SUSP PO SCH ×4 (06:21→21:43)
[2022-06-30 06:23] LABS: Monocytes # (auto) 0.7 10 ^3/uL (0-1.3); Monocytes % (auto) 13.5 % (0.0-12.0); Neutrophils % (auto) 47.5 % (37.0-80.0)
[2022-06-30] MEDS: HYDROcodone-ACET 5/325MG TAB PO PRN ×2 (06:23→20:26)
[2022-06-30 06:39] LABS: BUN/Creatinine Ratio 19.5 (10.0-20.0); Calcium 8.7 mg/dL (8.5-10.1); Potassium 3.8 mmol/L (3.5-5.1)
[2022-06-30 09:00] VITALS: BP 107/47
[2022-06-30] MEDS: ASPirin 81 mg TAB PO SCH (09:37)
[2022-06-30] MEDS: APIXABAN 5 MG TAB PO SCH ×2 (09:37→10:00)
[2022-06-30] MEDS: PANTOPRAZOLE 40 MG TAB PO SCH (09:37)
[2022-06-30] MEDS: CLOPIDOGREL BISULFATE 75 MG TAB PO SCH (09:38)
[2022-06-30] MEDS: DOCUSATE SOD 100 MG CAP PO SCH ×2 (09:38→21:44)
[2022-06-30] MEDS: SERTRALINE HCL 50 MG TAB PO SCH (09:38)
[2022-06-30] MEDS: ONDANSETRON HCL 4 MG/2 ML VIAL IV PRN ×2 (09:58→20:27)
[2022-06-30 13:00] VITALS: BP 127/50
[2022-06-30] MEDS ORDERED: LACTULOSE 20Gm/30ML SOLN PO PRN (15:30)
[2022-06-30 17:00] VITALS: BP 121/55
[2022-06-30] MEDS: ATORVASTATIN 20 MG TAB PO SCH (21:44)
[2022-06-30 21:58] VITALS: BP 130/51
[2022-07-01] MEDS: SUCRALFATE 1 GM/10 ML ORAL SUSP PO SCH ×2 (04:46→11:30)
[2022-07-01 05:20] VITALS: BP 126/46
[2022-07-01 05:57] LABS: Basophils # (auto) 0.1 10 ^3/uL (0-0.2); Eosinophils # (auto) 0.3 10 ^3/uL (0-0.8); Eosinophils % (auto) 6.1 % (0.0-7.0); Hematocrit 33.8 % (36.0-46.0); Hemoglobin 11.3 g/dL (12.2-16.2); Lymphocytes # (auto) 1.4 10 ^3/uL (0.4-5.4); Lymphocytes % (auto) 25.5 % (10.0-50.0); Mean Corpuscular Hemoglobin 26.9 pg (28.0-32.0); Mean Corpuscular Hgb Conc. 33.5 g/dL (32.0-36.0); Mean Corpuscular Volume 80.3 fL (80.0-100.0); Monocytes # (auto) 0.6 10 ^3/uL (0-1.3); Monocytes % (auto) 10.9 % (0.0-12.0); Neutrophils % (auto) 56.5 % (37.0-80.0); Nucleated Red Blood Cells % 0.2 %; Red Blood Cells 4.21 10^6/uL (4.0-5.20); Red Cell Distribution Width 17.7 % (11.8-14.3); White Blood Cell 5.3 10^3/uL (4.4-10.8)
[2022-07-01 06:10] LABS: BUN/Creatinine Ratio 18.6 (10.0-20.0); Calcium 8.6 mg/dL (8.5-10.1); Potassium 3.8 mmol/L (3.5-5.1)
[2022-07-01 06:11] LABS: INR 0.99 (0.9-1.15); Partial Thromboplastin Time 30.1 sec (24.6-33.4)
[2022-07-01 09:00] VITALS: BP 135/49
[2022-07-01] MEDS: PANTOPRAZOLE 40 MG TAB PO SCH (10:00)
[2022-07-01] MEDS: DOCUSATE SOD 100 MG CAP PO SCH (10:00)
[2022-07-01] MEDS: SERTRALINE HCL 50 MG TAB PO SCH (10:00)
[2022-07-01] MEDS: ASPirin 81 mg TAB PO SCH (10:00)
[2022-07-01] MEDS: ONDANSETRON HCL 4 MG/2 ML VIAL IV PRN (11:41)
[2022-07-01] MEDS ORDERED: LIDOCAINE VISCOUS 2% 15ML UD ONE (12:02)
[2022-07-01] MEDS ORDERED: diphenhdrAMINE HCL 50 MG/1 ML VL ONE (12:03)
[2022-07-01] MEDS ORDERED: fentaNYL CITRATE 100 MCG/2 ML VL ONE (12:03)
[2022-07-01] MEDS ORDERED: MIDAZOLAM HCL 2MG/2ML 2ml VIAL (1mg/ml) ONE (12:03)
[2022-07-01] MEDS ORDERED: NALOXONE HCL 0.4 MG/ML VIAL ONE (12:04)
[2022-07-01] MEDS ORDERED: FLUMAZENIL 0.1 MG/ML INJ 10ML MDV IV ONE (12:04)
[2022-07-01 13:00] VITALS: BP 125/50
[2022-07-01 14:31] VITALS: BP 110/40
== END 2022-07-01 15:32 | disposition home or self-care (01) | DRG 243 ==
LOC: ER 20:23 → TELE 06-28 02:43 → TELE-WESTW 06-28 02:49
PROVIDERS: ADMIT Nurse Practitioner; ATTEND Nurse Practitioner Acute Care
DX: K21.00 Gastro-esophageal reflux disease with esophagitis, without bleeding (principal); R13.14 Dysphagia, pharyngoesophageal phase; E78.5 Hyperlipidemia, unspecified; I10 Essential (primary) hypertension; F41.9 Anxiety disorder, unspecified; I07.1 Rheumatic tricuspid insufficiency; J44.9 Chronic obstructive pulmonary disease, unspecified; I73.9 Peripheral vascular disease, unspecified; Z20.822 Contact with and (suspected) exposure to COVID-19; Z86.718 Personal history of other venous thrombosis and embolism; Z95.5 Presence of coronary angioplasty implant and graft; Z79.01 Long term (current) use of anticoagulants; Z79.02 Long term (current) use of antithrombotics/antiplatelets; Z79.899 Other long term (current) drug therapy; I25.10 Atherosclerotic heart disease of native coronary artery without angina pectoris
CPT/HCPCS: 36415; 71045; 73562; 74176; 75635; 80048; 80053; 83735; 83880; 84484; 85025; 85610; 85730; 86850; 86900; 86901; 87426; 93005; 93306; 93926; 93971; G0378; J2250; J2405

== ENCOUNTER 2022-11-03 19:15 | Inpatient (IN) | payer MEDICAID ==
[~2022-11-03] VITALS: Ht 152.4 cm; Wt 52.1 kg
[~2022-11-03 19:15] MED LIST changes: -CLOP75TA70 PO; -EZET10TA22 PO; -HYDR12.56 PO; -ISO60SRT PO; -METO25TA93 PO; +MONT5CHW12 PO; -MONT5CHW23 PO; -RANO500T2 PO
[2022-11-03] MEDS ORDERED: ASPirin 81 mg TAB PO ONE (19:30)
[2022-11-03] MEDS ORDERED: SODIUM CHLORIDE 0.9% 1,000 ML IV ONE (19:30)
[2022-11-03 19:46] LABS: Basophils % (auto) 0.9 % (0.0-2.0); Eosinophils # (auto) 0.2 10 ^3/uL (0-0.8); Lymphocytes # (auto) 1.5 10 ^3/uL (0.4-5.4); Mean Corpuscular Hemoglobin 26.9 pg (28.0-32.0); Monocytes # (auto) 0.5 10 ^3/uL (0-1.3); Nucleated Red Blood Cells % 0.1 %
[2022-11-03 19:48] LABS: Basophils # (auto) 0.1 10 ^3/uL (0-0.2); Eosinophils % (auto) 4.4 % (0.0-7.0); Hematocrit 34.3 % (36.0-46.0); Hemoglobin 11.1 g/dL (12.2-16.2); Lymphocytes % (auto) 28.3 % (10.0-50.0); Mean Corpuscular Hgb Conc. 32.4 g/dL (32.0-36.0); Monocytes % (auto) 9.9 % (0.0-12.0); Neutrophils % (auto) 56.5 % (37.0-80.0); Red Blood Cells 4.13 10^6/uL (4.0-5.20); Red Cell Distribution Width 18.4 % (11.8-14.3); White Blood Cell 5.3 10^3/uL (4.4-10.8)
[2022-11-03 20:01] LABS: Albumin 3.9 g/dL (3.4-5.0); Calcium 8.8 mg/dL (8.5-10.1); Magnesium 2.5 mg/dL (1.6-2.6); Potassium 4.2 mmol/L (3.5-5.1)
[2022-11-03 20:04] LABS: BUN/Creatinine Ratio 16.5 (10.0-20.0); Bilirubin, Total 0.3 mg/dL (0.2-1.0); Total Protein 7.3 g/dL (6.4-8.2)
[2022-11-03 20:10] LABS: INR 1.01 (0.9-1.15); Partial Thromboplastin Time 29.8 SEC (24.5-34.5); Prothrombin Time 10.6 sec (9.3-11.8)
[2022-11-03 21:02] LABS: Urine Bacteria FEW /hpf (None Seen); Urine Blood Negative /uL (Negative); Urine Clarity Clear (Clear); Urine Color Colorless (Yellow); Urine Protein, UAD Negative (Negative); Urine Specific Gravity 1.008 (1.001-1.035); Urine Urobilinogen Normal (Negative); Urine WBC 1 /hpf (0 - 5); Urine pH 6.5 (5.0-8.0)
[2022-11-03 21:11] LABS: Alcohol, Urine < 3.0 mg/dL (0-10); Amphetamine Screen, Urine NEGATIVE (NEGATIVE); Barbiturate Scree,Urine NEGATIVE (NEGATIVE); Benzodiazephine Screen, Urine NEGATIVE (NEGATIVE); Cannabinoid Screen, Urine NEGATIVE (NEGATIVE); Cocaine Screen, Urine NEGATIVE (NEGATIVE); Opiate Scree,Urine NEGATIVE (NEGATIVE); Phencyclidine Screen, Urine NEGATIVE (NEGATIVE)
[2022-11-03] MEDS ORDERED: ACETAMINOPHEN 325 MG TAB PO PRN (22:15)
[2022-11-03] MEDS ORDERED: DOCUSATE SOD 100 MG CAP PO PRN (22:15)
[2022-11-03] MEDS: ONDANSETRON HCL 4 MG/2 ML VIAL IV PRN (22:47)
[2022-11-03] MEDS ORDERED: NITROGLYCERIN 0.4 MG SL TAB SL PRN (23:45)
[2022-11-04] VITALS (11 sets, daily range): BP systolic 114–133; BP diastolic 55–56; PULSE 54–71; RESP 16–20; TEMP 98.1–98.4; O2SAT 97–100
[2022-11-04] MEDS: MORPHINE SULFATE INJ 2 MG/ml SYRG IV PRN ×3 (01:57→13:17)
[2022-11-04 04:54] LABS: Basophils # (auto) 0.1 10 ^3/uL (0-0.2); Basophils % (auto) 1.1 % (0.0-2.0); Eosinophils # (auto) 0.3 10 ^3/uL (0-0.8); Eosinophils % (auto) 5.8 % (0.0-7.0); Hematocrit 31.2 % (36.0-46.0); Hemoglobin 10.2 g/dL (12.2-16.2); Lymphocytes # (auto) 1.7 10 ^3/uL (0.4-5.4); Lymphocytes % (auto) 33.7 % (10.0-50.0); Mean Corpuscular Hemoglobin 27.2 pg (28.0-32.0); Mean Corpuscular Hgb Conc. 32.6 g/dL (32.0-36.0); Mean Corpuscular Volume 83.3 fL (80.0-100.0); Monocytes # (auto) 0.6 10 ^3/uL (0-1.3); Neutrophils # (auto) 2.5 10 ^3/uL (1.6-8.6); Neutrophils % (auto) 48.4 % (37.0-80.0); Red Blood Cells 3.74 10^6/uL (4.0-5.20); Red Cell Distribution Width 18.5 % (11.8-14.3); White Blood Cell 5.1 10^3/uL (4.4-10.8)
[2022-11-04 05:10] LABS: Albumin 3.3 g/dL (3.4-5.0); Calcium 8.6 mg/dL (8.5-10.1)
[2022-11-04 05:15] LABS: BUN/Creatinine Ratio 20.6 (10.0-20.0); Bilirubin, Total 0.2 mg/dL (0.2-1.0); Total Protein 6.2 g/dL (6.4-8.2)
[2022-11-04] MEDS: SODIUM CHLOR 0.9% PF (SALINE LOCK) 10ML VIAL/SYR IV SCH ×3 (06:06→21:46)
[2022-11-04] MEDS: ONDANSETRON HCL 4 MG/2 ML VIAL IV PRN (08:25)
[2022-11-04] MEDS ORDERED: ASPirin 81 mg TAB PO SCH (10:00)
[2022-11-04] MEDS: APIXABAN 2.5 MG TAB PO SCH ×2 (11:07→21:46)
[2022-11-04] MEDS: LISINOPRIL 5 MG TAB PO SCH (11:11)
[2022-11-04] MEDS: PANTOPRAZOLE 40 MG/10 ML VIAL INJ IV SCH (11:11)
[2022-11-04] MEDS: ALBUTEROL SULF 2.5 MG/0.5ML(0.5%) NEB SOLN NEB SCH ×2 (12:02→19:38)
[2022-11-04] MEDS: HYDROcodone-ACET 5/325MG TAB PO PRN (20:12)
[2022-11-04] MEDS: ATORVASTATIN 20 MG TAB PO SCH (21:46)
[2022-11-04] MEDS: MONTELUKAST SODIUM 10 MG TAB PO SCH (21:46)
[2022-11-04] MEDS ORDERED: ATORVASTATIN 20 MG TAB PO SCH (22:00)
[2022-11-05] VITALS (14 sets, daily range): BP systolic 104–126; BP diastolic 55–74; PULSE 54–94; RESP 14–18; TEMP 97.6–98.3; O2SAT 96–100
[2022-11-05 05:49] LABS: Basophils # (auto) 0 10 ^3/uL (0-0.2); Basophils % (auto) 0.9 % (0.0-2.0); Eosinophils # (auto) 0.3 10 ^3/uL (0-0.8); Hemoglobin 10.9 g/dL (12.2-16.2); Lymphocytes # (auto) 1.4 10 ^3/uL (0.4-5.4); Lymphocytes % (auto) 25.9 % (10.0-50.0); Mean Corpuscular Hgb Conc. 32.1 g/dL (32.0-36.0); Mean Corpuscular Volume 83.9 fL (80.0-100.0); Monocytes # (auto) 0.6 10 ^3/uL (0-1.3); Monocytes % (auto) 12.1 % (0.0-12.0); Neutrophils % (auto) 56.1 % (37.0-80.0); Nucleated Red Blood Cells % 0.1 %; Red Blood Cells 4.05 10^6/uL (4.0-5.20); Red Cell Distribution Width 18.6 % (11.8-14.3); White Blood Cell 5.3 10^3/uL (4.4-10.8)
[2022-11-05 06:12] LABS: Calcium 8.8 mg/dL (8.5-10.1); Potassium 4.1 mmol/L (3.5-5.1)
[2022-11-05] MEDS: ALBUTEROL SULF 2.5 MG/0.5ML(0.5%) NEB SOLN NEB SCH ×3 (07:19→19:54)
[2022-11-05] MEDS: SODIUM CHLOR 0.9% PF (SALINE LOCK) 10ML VIAL/SYR IV SCH ×3 (07:39→21:03)
[2022-11-05] MEDS: PANTOPRAZOLE 40 MG/10 ML VIAL INJ IV SCH (09:22)
[2022-11-05] MEDS: APIXABAN 2.5 MG TAB PO SCH (09:23)
[2022-11-05] MEDS: LISINOPRIL 5 MG TAB PO SCH (09:23)
[2022-11-05] MEDS: HYDROcodone-ACET 5/325MG TAB PO PRN (09:24)
[2022-11-05] MEDS: RANOLAZINE ER 500 MG TAB PO SCH ×2 (10:47→21:01)
[2022-11-05 10:48] LABS: Cholesterol 135 mg/dL (< 200); HDL Cholesterol 52 mg/dL (40-59); LDL Cholesterol 72 mg/dL (< 100); Triglycerides 114 mg/dL (< 150)
[2022-11-05] MEDS: ONDANSETRON HCL 4 MG/2 ML VIAL IV PRN (13:19)
[2022-11-05] MEDS ORDERED: CLOPIDOGREL BISULFATE 75 MG TAB PO ONE (18:30)
[2022-11-05 20:01] LABS: BUN/Creatinine Ratio 14.9 (10.0-20.0); Calcium 8.9 mg/dL (8.5-10.1); Magnesium 2.3 mg/dL (1.6-2.6); Potassium 4.3 mmol/L (3.5-5.1)
[2022-11-05] MEDS: ATORVASTATIN 20 MG TAB PO SCH (21:01)
[2022-11-05] MEDS: MONTELUKAST SODIUM 10 MG TAB PO SCH (21:03)
[2022-11-06] VITALS (17 sets, daily range): BP systolic 98–131; BP diastolic 51–87; PULSE 53–74; RESP 14–18; TEMP 97.7–98.6; O2SAT 97–100
[2022-11-06] MEDS: SODIUM CHLOR 0.9% PF (SALINE LOCK) 10ML VIAL/SYR IV SCH ×3 (05:40→20:58)
[2022-11-06] MEDS: ALBUTEROL SULF 2.5 MG/0.5ML(0.5%) NEB SOLN NEB SCH ×3 (06:44→18:00)
[2022-11-06] MEDS: PANTOPRAZOLE 40 MG/10 ML VIAL INJ IV SCH (10:15)
[2022-11-06] MEDS ORDERED: ASPirin 325 MG TAB PO ONE (10:15)
[2022-11-06] MEDS: CLOPIDOGREL BISULFATE 75 MG TAB PO SCH (10:15)
[2022-11-06] MEDS: LISINOPRIL 5 MG TAB PO SCH (10:16)
[2022-11-06] MEDS: RANOLAZINE ER 500 MG TAB PO SCH ×2 (10:16→20:59)
[2022-11-06 10:26] LABS: Basophils # (auto) 0 10 ^3/uL (0-0.2); Basophils % (auto) 0.6 % (0.0-2.0); Eosinophils # (auto) 0.2 10 ^3/uL (0-0.8); Eosinophils % (auto) 3.3 % (0.0-7.0); Hematocrit 36.8 % (36.0-46.0); Lymphocytes # (auto) 0.7 10 ^3/uL (0.4-5.4); Lymphocytes % (auto) 13.2 % (10.0-50.0); Mean Corpuscular Hgb Conc. 32.5 g/dL (32.0-36.0); Mean Corpuscular Volume 82.9 fL (80.0-100.0); Monocytes # (auto) 0.5 10 ^3/uL (0-1.3); Monocytes % (auto) 8.6 % (0.0-12.0); Neutrophils # (auto) 4.1 10 ^3/uL (1.6-8.6); Neutrophils % (auto) 74.3 % (37.0-80.0); Red Blood Cells 4.44 10^6/uL (4.0-5.20); Red Cell Distribution Width 18.3 % (11.8-14.3); White Blood Cell 5.5 10^3/uL (4.4-10.8)
[2022-11-06] MEDS ORDERED: SODIUM CHL 0.9% 0 ML ONE (10:35)
[2022-11-06] MEDS ORDERED: EPINEPHrine HCL 1 MG/1 ML AMP ONE (10:35)
[2022-11-06] MEDS ORDERED: VERAPAMIL 2.5MG/ML INJ 2ML VIAL IV ONE (10:35)
[2022-11-06] MEDS ORDERED: ATROPINE SULF 1 MG/10ml SYR ONE (10:35)
[2022-11-06] MEDS ORDERED: fentaNYL CITRATE 100 MCG/2 ML VL ONE (10:35)
[2022-11-06] MEDS ORDERED: ANGIOMAX 250 MG VIAL IV ONE (10:35)
[2022-11-06] MEDS ORDERED: MIDAZOLAM HCL 2MG/2ML 2ml VIAL (1mg/ml) ONE (10:35)
[2022-11-06] MEDS ORDERED: LIDOCAINE 2%HCL (LOCAL ANESTH.) INJ 20ML MDV ONE (10:36)
[2022-11-06] MEDS ORDERED: IODIXANOL 320MG/ML 100ML BTL IV ONE ×2 (10:36→10:50)
[2022-11-06] MEDS ORDERED: EPINEPHrine HCL 1 MG/10 ML SYRG ONE (10:57)
[2022-11-06 11:01] LABS: BUN/Creatinine Ratio 17.5 (10.0-20.0); Calcium 9.7 mg/dL (8.5-10.1); Potassium 4.4 mmol/L (3.5-5.1)
[2022-11-06] MEDS ORDERED: HEPARIN SODIUM (PORCINE) 5000 UNITS/ML 1ML VIAL ONE (11:28)
[2022-11-06] MEDS ORDERED: ceFAZolin 1GM/50ML 50 ML IV ONE (11:34)
[2022-11-06] MEDS ORDERED: ceFAZolin 1GM VL ONE (11:36)
[2022-11-06] MEDS ORDERED: ONDANSETRON HCL 4 MG/2 ML VIAL ONE (11:48)
[2022-11-06] MEDS: HYDROcodone-ACET 5/325MG TAB PO PRN ×2 (14:02→19:51)
[2022-11-06] MEDS: ONDANSETRON HCL 4 MG/2 ML VIAL IV PRN (17:29)
[2022-11-06] MEDS: ATORVASTATIN 20 MG TAB PO SCH (20:58)
[2022-11-06] MEDS: MONTELUKAST SODIUM 10 MG TAB PO SCH (20:59)
[2022-11-07] VITALS (10 sets, daily range): BP systolic 96–104; BP diastolic 49–54; PULSE 63–79; RESP 14–21; TEMP 98–98.5; O2SAT 96–100
[2022-11-07] MEDS: ONDANSETRON HCL 4 MG/2 ML VIAL IV PRN ×2 (03:33→09:21)
[2022-11-07] MEDS: HYDROcodone-ACET 5/325MG TAB PO PRN ×2 (03:46→09:21)
[2022-11-07] MEDS: SODIUM CHLOR 0.9% PF (SALINE LOCK) 10ML VIAL/SYR IV SCH ×2 (06:20→14:00)
[2022-11-07] MEDS: ALBUTEROL SULF 2.5 MG/0.5ML(0.5%) NEB SOLN NEB SCH ×2 (06:40→11:47)
[2022-11-07] MEDS: CLOPIDOGREL BISULFATE 75 MG TAB PO SCH (09:21)
[2022-11-07] MEDS: PANTOPRAZOLE 40 MG/10 ML VIAL INJ IV SCH (09:21)
[2022-11-07] MEDS: RANOLAZINE ER 500 MG TAB PO SCH (09:25)
[2022-11-07] MEDS: LISINOPRIL 5 MG TAB PO SCH (09:26)
[2022-11-07 10:10] LABS: Potassium 4.7 mmol/L (3.5-5.1)
[2022-11-07 10:15] LABS: BUN/Creatinine Ratio 17.2 (10.0-20.0)
[2022-11-07] MEDS ORDERED: NITR0.4S29 SL (11:09)
[2022-11-07] MEDS ORDERED: LISI-275 PO (11:09)
[2022-11-07] MEDS ORDERED: RANO10003 PO (11:09)
[2022-11-07] MEDS ORDERED: ASPI1TAB20 PO (11:10)
== END 2022-11-07 15:40 | disposition home or self-care (01) | DRG 191 ==
LOC: ER 19:22 → TELE 23:39 → TELE-E-ADS 11-04 11:39 → TELE-CENTR 11-04 18:41
PROVIDERS: ADMIT Internal Medicine; ATTEND Student in an Organized Health Care Education/Training Program
PROC: B211YZZ Fluoroscopy of Multiple Coronary Arteries using Other Contrast (ICD-10-PCS; principal; 2022-11-06)
PROC: 4A023N7 Measurement of Cardiac Sampling and Pressure, Left Heart, Percutaneous Approach (ICD-10-PCS; 2022-11-06)
PROC: B41FYZZ Fluoroscopy of Right Lower Extremity Arteries using Other Contrast (ICD-10-PCS; 2022-11-06)
DX: I25.111 Atherosclerotic heart disease of native coronary artery with angina pectoris with documented spasm (principal); E78.5 Hyperlipidemia, unspecified; F41.9 Anxiety disorder, unspecified; I10 Essential (primary) hypertension; J44.9 Chronic obstructive pulmonary disease, unspecified; I48.91 Unspecified atrial fibrillation; K21.9 Gastro-esophageal reflux disease without esophagitis; Z86.718 Personal history of other venous thrombosis and embolism; Z79.01 Long term (current) use of anticoagulants; Z79.899 Other long term (current) drug therapy; Z82.49 Family history of ischemic heart disease and other diseases of the circulatory system; Z95.5 Presence of coronary angioplasty implant and graft
CPT/HCPCS: 36415; 71045; 80048; 80053; 80061; 80307; 81001; 83735; 83880; 84484; 85025; 85379; 85610; 85730; 93005; 93306; 93458; 94640; 99152; C1894; C9113; G0378; J0171; J0690; J2250; J2405; Q9967

== ENCOUNTER 2023-02-23 15:57 | Emergency (ER) | payer MEDICAID ==
[~2023-02-23] VITALS: Ht 152.4 cm; Wt 44.0 kg
[~2023-02-23 15:57] MED LIST changes: +ASPI1TAB20 PO; -DOXY-286 PO; +LISI-275 PO; +NITR0.4S29 SL; +RANO10003 PO
[2023-02-23 17:14] LABS: Basophils # (auto) 0 10 ^3/uL (0-0.2); Basophils % (auto) 0.9 % (0.0-2.0); Eosinophils # (auto) 0.1 10 ^3/uL (0-0.8); Eosinophils % (auto) 1.5 % (0.0-7.0); Hematocrit 37.4 % (36.0-46.0); Hemoglobin 11.7 g/dL (12.2-16.2); Lymphocytes # (auto) 0.7 10 ^3/uL (0.4-5.4); Lymphocytes % (auto) 13.5 % (10.0-50.0); Mean Corpuscular Hemoglobin 25.9 pg (28.0-32.0); Mean Corpuscular Hgb Conc. 31.4 g/dL (32.0-36.0); Mean Corpuscular Volume 82.6 fL (80.0-100.0); Monocytes # (auto) 0.3 10 ^3/uL (0-1.3); Monocytes % (auto) 6.3 % (0.0-12.0); Neutrophils % (auto) 77.8 % (37.0-80.0); Red Blood Cells 4.53 10^6/uL (4.0-5.20); Red Cell Distribution Width 15.7 % (11.8-14.3); White Blood Cell 5.1 10^3/uL (4.4-10.8)
[2023-02-23 17:25] LABS: Alanine Aminotransferase 23 U/L (7-40); Albumin 4.6 g/dL (3.2-4.8); Alkaline Phosphatase 87 U/L (46-116); Amylase 189 U/L (30-118); Anion Gap 7 (5-15); Aspartate Aminotransferase 53 U/L (13-40); BUN/Creatinine Ratio 9.7 (10.0-20.0); Bilirubin, Total 0.5 mg/dL (0.2-1.0); Blood Urea Nitrogen 7 mg/dL (9-23); Calcium 9.3 mg/dL (8.7-10.4); Carbon Dioxide 26 mmol/L (20-30); Chloride 107 mmol/L (98-107); Glucose 100 mg/dL (74-106); Lipase 40 U/L (12-53); Magnesium 1.9 mg/dL (1.6-2.6); Potassium 3.9 mmol/L (3.5-5.1); Sodium 140 mmol/L (136-145); Total Protein 6.9 g/dL (5.7-8.2)
[2023-02-23] MEDS ORDERED: LIDOCAINE VISCOUS 2% 15ML UD PO ONE (18:45)
[2023-02-23] MEDS ORDERED: MAALOX PLUS or MAALOX 30 ML PO ONE (18:45)
[2023-02-23] MEDS ORDERED: SODIUM CHLORIDE 0.9% 1,000 ML IV ONE (19:00)
[2023-02-23] MEDS ORDERED: ONDANSETRON HCL 4 MG/2 ML VIAL IV ONE (19:00)
[2023-02-23 20:52] LABS: Amphetamine Screen, Urine Pos (NEGATIVE); Barbiturate Scree,Urine Neg (NEGATIVE); Benzodiazephine Screen, Urine Neg (NEGATIVE); Cannabinoid Screen, Urine Pos (NEGATIVE); Cocaine Screen, Urine Neg (NEGATIVE); Opiate Scree,Urine Neg (NEGATIVE); Phencyclidine Screen, Urine Neg (NEGATIVE)
[2023-02-23 21:13] LABS: Urine Bacteria FEW /hpf (None Seen); Urine Blood Negative /uL (Negative); Urine Clarity Clear (Clear); Urine Color Colorless (Yellow); Urine Protein, UAD Negative (Negative); Urine Specific Gravity 1.006 (1.001-1.035); Urine Urobilinogen Normal (Negative); Urine WBC 1 /hpf (0 - 5); Urine pH 6.5 (5.0-8.0)
[2023-02-23 22:28] VITALS: BP 143/59; PULSE 70; RESP 18; TEMP 98.1; O2SAT 100
== END 2023-02-23 22:30 | disposition left against medical advice (07) ==
LOC: ER 15:57
DX: R10.13 Epigastric pain (principal); R11.2 Nausea with vomiting, unspecified; R19.7 Diarrhea, unspecified; F15.10 Other stimulant abuse, uncomplicated; I10 Essential (primary) hypertension; I25.10 Atherosclerotic heart disease of native coronary artery without angina pectoris; J45.909 Unspecified asthma, uncomplicated; E78.5 Hyperlipidemia, unspecified; J44.9 Chronic obstructive pulmonary disease, unspecified; K21.9 Gastro-esophageal reflux disease without esophagitis; Z79.82 Long term (current) use of aspirin; Z79.899 Other long term (current) drug therapy; Z86.718 Personal history of other venous thrombosis and embolism
CPT/HCPCS: 36415; 74176; 80053; 80307; 81001; 82150; 83690; 83735; 84484; 85025; 93005; 96361; 96374; 99285; J2405

== ENCOUNTER 2024-11-09 11:55 | Emergency (ER) | payer MEDICAID ==
[~2024-11-09] VITALS: Ht 154.9 cm; Wt 47.0 kg
[2024-11-09 12:33] LABS: Hematocrit 40.1 % (36.0-46.0); Hemoglobin 13.5 g/dL (12.2-16.2); Mean Corpuscular Hemoglobin 29.6 pg (28.0-32.0); Mean Corpuscular Volume 88.3 fL (80.0-100.0); Nucleated Red Blood Cells % 0.1 %
--- NOTE | 2024-11-09 12:39 | ED.PDOC ---
General HPI Comments A 63 YEAR-OLD FEMALE, WITH PMHX OF CAD, COPD, GERD, HTN, AND HIGH LIPIDS, PRESENTS TO THE ED WITH A CHIEF COMPLAINT OF R FLANK PAIN FOR X1 WEEK. PATIENT REPORTS GOING TO THE ER AT [facility] 1 MONTH AGO, WHERE SHE WAS DISCHARGED WITH STAGE 5 KIDNEY FAILURE. PATIENT REPORTS ADDITIONAL CHEST PAIN DUE TO HAS BEEN PASSING AWAY LAST FEBRUARY. PATIENT HAS NO FURTHER COMPLAINTS AT THIS TIME. PATIENT FURTHER DENIES ASSOCIATED SYMPTOMS OF DYSURIA, HEMATURIA, NAUSEA, VOMITING, FEVER, OR CHILLS. PATIENT IS ALERT, ORIENTED X 4, AND HAS STEADY GAIT. Chief Complaint: Flank Pain Time Seen by MD: 12:19 Primary Care Provider: Reviewed notes: Nurses Notes, Medications, Allergies Allergies: Coded Allergies: NO KNOWN ALLERGIES (Unverified , 07/24/20) Home Meds Active Scripts Docusate Sodium (Colace) 100 Mg Cap, 1 CAP PO BID, #30 CAP Prov:AMARILIS CHIN 11/09/24 Aspirin (Aspir-81) 81 Mg Tab, 1 TAB PO DAILY, #30 TAB 5 Refills Prov:YARA CAMPOS MD 11/07/22 Ranolazine (Ranolazine ER) 1,000 Mg Tab, 1000 MG PO BID, #60 TAB Prov:YARA CAMPOS MD 11/07/22 Nitroglycerin (NTROSTAT SUBLINGUAL) 0.4 Mg Sl, 0.4 MG SL Q5MINP PRN, #30 TAB 5 Refills Prov:YARA CAMPOS MD 11/07/22 Lisinopril (Lisinopril) 5 Mg Tab, 2.5 MG PO DAILY, #30 TAB 5 Refills Prov:YARA CAMPOS MD 11/07/22 Apixaban Base (ELIQUIS) 5 Mg Tab, 2.5 MG PO BID, #60 TAB Prov:ACE ANDRES MD 03/02/22 Reported Medications Pantoprazole Sodium (PANTOPRAZOLE SODIUM) 40 Mg Inj, 40 MG PO QPM, INJ 07/26/20 Buspirone HCl (Buspirone HCl) 10 Mg Tab, 10 MG PO TID, TAB 07/25/20 Atorvastatin Calcium (Lipitor) 80 Mg Tab, 80 MG PO HS, TAB 07/25/20 Montelukast Sodium (Singulair) 5 Mg Chw, 10 MG PO DAILY, TAB.CHEW 07/25/20 Information Source: Patient Mode of Arrival: Ambulatory Severity: Moderate Inability to void: None Timing: Days Prehospital treatment: None Onset: Spontaneous Symptoms: None History of: None Location: (R) Flank, (L)Flank Modifying factors: None associated signs and symptoms: Flank Pain Past Medical History PAST MEDICAL HISTORY: Anxiety, Asthma, CAD, COPD, GERD, High Lipids, HTN 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: Denies all RELIEF DRILLER Hx Family History Family History: Family hx of heart andrew Social History Smoker: Non-Smoker Alcohol: Denies ETOH Use Drugs: Marijuana Lives In: Home Constitutional: denies: chills, diaphoresis, fatigue, fever, malaise, sweats, weakness, others EENTM: denies: blurred vision, double vision, ear bleeding, ear discharge, ear drainage, ear pain, ear ringing, eye pain, eye redness, hearing loss, mouth pain, mouth swelling, nasal discharge, nose bleeding, nose congestion, nose pain, photophobia, tearing, throat pain, throat swelling, voice changes, others Respiratory: denies: cough, hemoptysis, orthopnea, SOB at rest, shortness of breath, SOB with excertion, stridor, wheezing, others Cardiovascular: denies: chest pain, dizzy spells, diaphoresis, Dyspnea on exe rtion, edema, irregular heart beat, left arm pain, lightheadedness, palpitations, PND, syncope, others Gastrointestinal: denies: abdomen distended, abdominal pain, blood streaked bowels, constipated, diarrhea, dysphagia, difficulty swallowing, hematemesis, melena, nausea, poor appetite, poor fluid intake, rectal bleeding, rectal pain, vomiting, others Genitourinary: reports: flank pain; denies: abnormal vagina bleeding, burning, dyspareunia, dysuria, frequency, hematuria, incontinence, pain, , vagina discharge, urgency, others Neurological: denies: dizziness, fainting, headache, left sided numbness, left sided weakness, numbness, paresthesia, pre-existing deficit, right sided numbness, right sided weakness, seizure, speech problems, tingling, tremors, weakness, others Musculoskeletal: reports: back pain, muscle pain; denies: gout, joint pain, joint swelling, muscle stiffness, neck pain, others Integumetry: denies: bruises, change in color, change in hair/nails, dryness, laceration, lesions, lumps, rash, wounds, others Allergic/Immunocompromised: denies: Difficulty Healing, Frequent Infections, Hives, Itching, others Hematologic/Lymphatic: denies: anemia, blood clots, easy bleeding, easy bruising, swollen glands, others Psychiatric: denies: anxiety, bipolar disorder, depression, hopeless, panic disorder, schizophrenia, sleepless, suicidal, others All Other Systems: Reviewed and Negative Physical Exam General Appearance: Mild Distress, Normal HEENT: Normal ENT Inspection, PERRL/EOMI, Pharynx Normal, TMs Normal Neck: Full Range of Motion, Non-Tender, Normal, Normal Inspection Respiratory: Chest Non-Tender, Lungs Clear, No Accessory Muscle Use, No Respira tory Distress, Normal Breath Sounds Cardiovascular: No Edema, No JVD, No Murmur, No Gallop, Normal Peripheral Pulses, Regular Rate/Rhythm Breast Exam: Deferred Gastrointestinal: No Organomegaly, No Pulsatile Mass, Normal Bowel Sounds, Soft, Other (TENDERNESS BILATERAL FLANKS, NO GUARDING AND REBOUND TENDERNESS, NO CVA TENDERNESS. 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 Was a procedure done?: No EKG EKG : Pulse Rate (adult): 66 [place]: Normal Cardiac Rhythm: NSR Comments SHORT ME INTERVAL Differential Diagnosis Kidney stone (Female): Musculoskeletal pain, Renal failure, Strain, Urolithiasis Urinary Problem (Female): Pyelonephritis, UTI, Vaginitis X-Ray, Labs, Meds, VS Vital Signs Date Time Temp Pulse Resp B/P (MAP) Pulse Ox O2 Delivery O2 Flow Rate FiO2 11/09/24 12:50 66 8/16/25 12:42 66 11/09/24 11:56 97.9 72 18 148/64 97 97.9 Lab Test 11/09/24 12:28 11/09/24 12:12 Range/Units Urine Color Light-yellow Yellow Urine Clarity Clear Clear Urine pH 5.5 5.0-9.0 Urine Specific [place] 1.011 1.001-1.035 Urine Protein Negative Negative Urine Ketones Negative Negative Urine Blood Negative Negative /uL Urine Nitrite Negative Negative Urine Bilirubin Negative Negative Urine Urobilinogen Normal Negative mg/dL Urine Leukocyte Esterase Negative Negative /uL Urine RBC 4 0 - 4 /hpf Urine Microscopic WBC 2 0-5 /HPF Urine Squamous Epithelial Cells None seen <5 /hpf Urine Bacteria None seen None Seen /hpf Urine Glucose Normal Normal mg/dL Urine Opiates Screen Neg NEGATIVE Urine Fentanyl Screen Neg NEGATIVE Urine Barbiturates Screen Neg NEGATIVE Urine Phencyclidine Screen Neg NEGATIVE Urine Amphetamines Screen Neg NEGATIVE Urine Benzodiazepines Screen Neg NEGATIVE Urine Cocaine Screen Neg NEGATIVE Urine Cannabinoids Screen Neg NEGATIVE White Blood Count 6.3 4.4-10.8 10^3/uL Red Blood Count 4.54 4.0-5.20 10^6/uL Hemoglobin 13.5 12.2-16.2 g/dL Hematocrit 40.1 36.0-46.0 % Mean Corpuscular Volume 88.3 80.0-100.0 fL Mean Corpuscular Hemoglobin 29.6 28.0-32.0 pg Mean Corpuscular Hemoglobin Concent 33.6 32.0-36.0 g/dL Red Cell Distribution Width 14.5 H 11.8-14.3 % Platelet Count 266 140-450 10^3/uL Mean Platelet Volume 8.0 6.9-10.8 fL Neutrophils (%) (Auto) 77.6 37.0-80.0 % Lymphocytes (%) (Auto) 15.3 10.0-50.0 % Monocytes (%) (Auto) 5.5 0.0-12.0 % Eosinophils (%) (Auto) 1.0 0.0-7.0 % Basophils (%) (Auto) 0.6 0.0-2.0 % Neutrophils # (Auto) 4.9 1.6-8.6 10 ^3/uL Lymphocytes # (Auto) 1.0 0.4-5.4 10 ^3/uL Monocytes # (Auto) 0.3 0-1.3 10 ^3/uL Eosinophils # (Auto) 0.1 0-0.8 10 ^3/uL Basophils # (Auto) 0 0-0.2 10 ^3/uL Nucleated Red Blood Cells 0.1 % Sodium Level 145 136-145 mmol/L Potassium Level 3.7 3.5-5.1 mmol/L Chloride Level 109 H 98-107 mmol/L Carbon Dioxide Level 26 20-31 mmol/L Anion Gap 10 5-15 Blood Urea Nitrogen 7 L 9-23 mg/dL Creatinine 0.79 0.550-1.02 mg/dL Glomerular Filtration Rate Calc 83 >90 mL/min BUN/Creatinine Ratio 8.9 L 10.0-20.0 Serum Glucose 106 74-106 mg/dL Calcium Level 9.2 8.7-10.4 mg/dL Total Bilirubin 0.4 0.2-1.0 mg/dL Aspartate Amino Transferase (AST) 26 13-40 U/L Alanine Aminotransferase (ALT) 14 7-40 U/L Alkaline Phosphatase 102 46-116 U/L Troponin I High Sensitivity < 3 L </=34 ng/L Total Protein 6.8 5.7-8.2 g/dL Albumin 4.6 3.2-4.8 g/dL [place] [address] Ph: [phone] DIAGNOSTIC IMAGING Diagnostic Imaging Report : [id number] Signed PATIENT: THONG RODRÍGUEZ ACCT: [id number] UNIT: [id number] : 1960 LOC: ER ROOM / BED: / AGE / SEX: 63 / F ADM STATUS: REG ER SERVICE 1232 ORDERING PHYSICIAN: AMARILIS CHIN PROCEDURE(s): ABPL - CT AB PEL WO CON-NO ORAL OR IV REASON: BILATERAL FLANK PAIN ORDER NUMBER(s): [id number], ACCESSION NUMBER(s): [id number] CLINICAL HISTORY: BILATERAL FLANK PAIN TECHNIQUE: CT of the abdomen and pelvis was performed without IV contrast. This exam was performed according to our departmental dose optimization program. Up-to-date CT equipment and radiation dose reduction techniques are utilized as appropriate. CTDI 6.2 DLP 262.8 COMPARISON: CT CT AB PEL WO CON-NO ORAL OR IV on DOS: 02/23/23, CT CT ANGIO ABD AORTA W RUN OFF on DOS: 06/29/22, CT CT AB PEL WO CON-NO ORAL OR IV on DOS: 06/28/22, CT AB PEL WITH IV CON ONLY on DOS: 07/24/20 FINDINGS: Abdomen/Pelvis: The spleen, pancreas, adrenal glands, kidneys, gallbladder, liver, and uterus are grossly unremarkable. The bladder is not well distended and therefore not well evaluated. There is a moderate amount of stool in the colon. The abdominal aorta is normal in course and caliber. There are mild atherosclerotic calcifications. There is no free intraperitoneal air or fluid. There is no enlarged abdominal pelvic lymph node. There is no bowel wall thickening or dilatation. The appendix is normal. Other: The imaged lower thorax demonstrates mild bilateral lower lung atelectasis. There are coronary artery calcifications.. No acute osseous abnormality is evident. Impression: No acute noncontrast CT abnormality of the abdomen/pelvis. Constipation. Coronary artery calcifications. ATED BY: HARI ESCALERA MD DICTATED DATE/TIME: 11/09/24 1342 SIGNED BY: HARI ESCALERA MD SIGNED DATE/TIME: 11/09/24 1342 CC: X-Ray, Labs, Meds, VS Comment EXTERNAL MEDICAL RECORDS REVIEWED: [NONE] INDEPENDENT HISTORIANS: [NONE] SOCIAL DETERMINANTS OF HEALTH: [NONE] LABS ORDERED: CBC, BMP, UA, TROPONIN, DRUG SCREEN REVIEWED AND INTERPRETED RESULTS: ALL NORMAL IMAGING ORDERED: ABD CT SHOWED CONSTIPATION AND CORONARY ARTERY CALCIFICATIONS. TREATMENTS ORDERED: NONE PROCEDURES PERFORMED: NONE CRITICAL CARE TIME: NONE I HAVE DISCUSSED THE PATIENT WITH THE ATTENDING PHYSICIAN DR. ARELLANO AND SHE AGREES WITH THE PATIENT'S PLAN OF CARE AND DISPOSITION. BASED ON HISTORY OF PRESENT ILLNESS, AND PHYSICAL EXAM, PATIENT WILL BE DISCHARGED HOME. DISCUSSED PLAN FOR DISCHARGE HOME WITH RX [COLACE 100MG]. MEDICATION WARNINGS GIVEN. SHARED DECISION MAKING: DISCUSSED WITH PATIENT THAT THEIR WORKUP WAS NORMAL. PATIENT INSTRUCTED TO FOLLOW UP WITH PRIMARY CARE PROVIDER IN 1-2 DAYS FOR RE- EVALUATION OF SYMPTOMS. PATIENT VERBALIZES UNDERSTANDING TO RETURN TO ED FOR NEW OR WORSENING SYMPTOMS OR IF FOLLOW UP WITH PCP CANNOT BE OBTAINED. PATIENT FEELS COMFORTABLE GOING HOME AT THIS TIME. ALL QUESTIONS ADDRESSED AT TIME OF DISCHARGE. Images Reviewed?: Images reviewed and evaluated by me Time of 1ST Reevaluation: 14:12 Reevaluation 1ST: Improved Patient Education/Counseling: Diagnosis, Treatment, Need For Follow Up Family Education/Counseling: Diagnosis, Treatment, No Family Present Medical Screening: No EMC Exist At This Time SEPSIS Sepsis Screen Date sepsis recognized/suspect: Nov 09, 2024 Time Sepsis recognized/suspect: 1158 Recent Procedure: No On Antibiotic Therapy: No Respiratory Rate >20: No Heart Rate >90: No Temp<36 C (96.8 F) or >38.3 C: No SBP <90 or MAP <65 mmHG: No New Acute Mental Status Change: No Is the patient on CPAP, BIPAP,: No Physician Orders Electrocardigram (11/09/24 12:25) Ct Ab Pel Wo Con-No Oral Or Iv (11/09/24 12:32) Vital Signs Date Time Temp Pulse Resp B/P (MAP) Pulse Ox O2 Delivery O2 Flow Rate FiO2 11/09/24 12:50 66 11/09/24 12:42 66 11/09/24 11:56 97.9 72 18 148/64 97 97.9 Laboratory Tests Test 11/09/24 12:12 White Blood Count 6.3 10^3/uL (4.4-10.8) Departure 1 Departure Time of Disposition: 14:13 Impression: Primary Impression: Constipation Qualified Codes: K59.00 - Constipation, unspecified Disposition: 01 HOME / SELF CARE / HOMELESS Condition: Stable Additional Instructions: FOLLOW-UP WITH PCP IN 1 TO 2 DAYS. TAKE MEDICATIONS PRESCRIBED. RETURN TO ED FOR ANY NEW OR WORSENING SYMPTOMS. e-Prescriptions Docusate Sodium (Colace) 100 Mg Cap 1 CAP PO BID, #30 CAP Prov: AMARILIS CHIN 11/09/24 Discharged With: Self Critical Care Note Critical Care Time?: No Stability Stability form required: No Heart Score Heart Score: Heart Score Response (Comments) Value History N/A 0 EKG N/A 0 Age N/A 0 Risk Factors N/A 0 Troponin N/A 0 Total 0 I personally scribed for AMARILIS CHIN ([email or web address]) on 11/09/24 at 12:39. Electronically submitted by Tiara Chavez ([email or web address]). I personally scribed for AMARILIS CHIN ([email or web address]) on 11/09/24 at 12:46. Electronically submitted by Tiara Chavez ([email or web address]). I personally scribed for AMARILIS CHIN ([email or web address]) on 11/09/24 at 12:50. Electronically submitted by Tiara Chavez ([email or web address]). I personally scribed for AMARILIS CHIN ([email or web address]) on 11/09/24 at 13:09. Electronically submitted by Tiara Chavez ([email or web address]). I personally scribed for AMARILIS CHIN ([email or web address]) on 11/09/24 at 13:49. Electronically submitted by Tiara Chavez ([email or web address]). AMARILIS CHIN Nov 09, 2024 12:39
[2024-11-09 12:50] LABS: Alanine Aminotransferase 14 U/L (7-40); Albumin 4.6 g/dL (3.2-4.8); Alkaline Phosphatase 102 U/L (46-116); Anion Gap 10 (5-15); BUN/Creatinine Ratio 8.9 (10.0-20.0); Calcium 9.2 mg/dL (8.7-10.4); Carbon Dioxide 26 mmol/L (20-31); Glucose 106 mg/dL (74-106); Potassium 3.7 mmol/L (3.5-5.1); Total Protein 6.8 g/dL (5.7-8.2)
[2024-11-09 12:51] LABS: Bilirubin, Total 0.4 mg/dL (0.2-1.0)
[2024-11-09 12:53] LABS: Blood Urea Nitrogen 7 mg/dL (9-23); Chloride 109 mmol/L (98-107); Sodium 145 mmol/L (136-145)
[2024-11-09 12:54] LABS: Urine Protein, UAD Negative (Negative)
[2024-11-09 12:57] LABS: Amphetamine Screen, Urine Neg (NEGATIVE); Cannabinoid Screen, Urine Neg (NEGATIVE)
[2024-11-09 12:59] LABS: Barbiturate Scree,Urine Neg (NEGATIVE); Benzodiazephine Screen, Urine Neg (NEGATIVE); Cocaine Screen, Urine Neg (NEGATIVE); Opiate Scree,Urine Neg (NEGATIVE); Phencyclidine Screen, Urine Neg (NEGATIVE)
--- NOTE | 2024-11-09 13:44 | DVH ---
CLINICAL HISTORY: BILATERAL FLANK PAIN TECHNIQUE: CT of the abdomen and pelvis was performed without IV contrast. This exam was performed ac cording to our departmental dose optimization program. Up-to-date CT equipment and radiation dose red uction techniques are utilized as appropriate. CTDI 6.2 DLP 262.8 COMPARISON: CT CT AB PEL WO CON-NO ORAL OR IV on DOS: 02/23/23, CT CT ANGIO ABD AORTA W RUN OFF on DO S: 06/29/22, CT CT AB PEL WO CON-NO ORAL OR IV on DOS: 06/28/22, CT AB PEL WITH IV CON ONLY on DOS: FINDINGS: Abdomen/Pelvis: The spleen, pancreas, adrenal glands, kidneys, gallbladder, liver, and uterus are grossly unremarkabl e. The bladder is not well distended and therefore not well evaluated. There is a moderate amount of stool in the colon. The abdominal aorta is normal in course and caliber. There are mild atherosclerotic calcifications. There is no free intraperitoneal air or fluid. There is no enlarged abdominal pelvic lymph node. There is no bowel wall thickening or dilatation. The appendix is normal. Other: The imaged lower thorax demonstrates mild bilateral lower lung atelectasis. There are coronary artery calcifications.. No acute osseous abnormality is evident. Impression: No acute noncontrast CT abnormality of the abdomen/pelvis. Constipation. Coronary artery calcifications.
[2024-11-09] MEDS ORDERED: DOCU-94 PO (14:08)
[2024-11-09 14:15] VITALS: BP 141/67; PULSE 67; RESP 14; TEMP 97.8; O2SAT 97
--- NOTE | 2024-11-10 05:14 | ECG ---
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
== END 2024-11-09 14:15 | disposition home or self-care (01) ==
LOC: ER 11:55
DX: K59.00 Constipation, unspecified (principal); F12.90 Cannabis use, unspecified, uncomplicated; F41.9 Anxiety disorder, unspecified; J45.909 Unspecified asthma, uncomplicated; J44.89 Other specified chronic obstructive pulmonary disease; E78.5 Hyperlipidemia, unspecified; I10 Essential (primary) hypertension; I25.10 Atherosclerotic heart disease of native coronary artery without angina pectoris; Z79.899 Other long term (current) drug therapy; Z79.82 Long term (current) use of aspirin; Z79.01 Long term (current) use of anticoagulants
CPT/HCPCS: 36415; 74176; 80053; 80307; 81001; 84484; 85025; 93005